=== PATIENT | female | born 1980 | race Caucasian/White ===

== ENCOUNTER 2017-11-16 21:50 | Inpatient (IN) | payer OTHER ==
[~2017-11-16 21:50] MED LIST: ACYC800 PO; AMOX500 PO; CEPH500 PO; IBUP800 PO; OXYACE5T PO; RXOXYACE PO; VALA500 PO; Valium5 MG PO
[2017-11-16] MEDS ORDERED: NIFE60ER PO (22:58)
[2017-11-16] MEDS ORDERED: Verotin-Gr Cap1 EACH (22:58)
[2017-11-16] MEDS ORDERED: PANT40 PO (23:00)
[2017-11-16] MEDS ORDERED: LABE100 PO (23:00)
[2017-11-16 23:26] LABS: BASOPHILS ABSOLUTE AUTO 0.02 K/mm3 (0.00-0.23); BASOPHILS PERCENT AUTO 0 % (0-2); EOSINOPHILS ABSOLUTE AUTO 0.03 K/mm3 (0.00-0.68); EOSINOPHILS PERCENT AUTO 0 % (0-6); Hematocrit 35.2 % (33.0-51.0); Hemoglobin 11.7 g/dL (11.5-16.0); IMMATURE GRAN ABSOLUTE AUTO 0.04 K/mm3 (0.00-0.10); IMMATURE GRAN PERCENT AUTO 0 % (0-1); LYMPHOCYTES ABSOLUTE AUTO 2.35 K/mm3 (0.84-5.20); LYMPHOCYTES PERCENT AUTO 22 % (21-46); MONOCYTES ABSOLUTE AUTO 0.72 K/mm3 (0.16-1.47); MONOCYTES PERCENT AUTO 7 % (4-13); Mean Corpuscular HGB 29.5 pg (26.0-34.0); Mean Corpuscular HGB Conc 33.2 g/dL (31.5-36.5); Mean Corpuscular Volume 89 fL (80-100); NEUTROPHILS ABSOLUTE AUTO 7.74 K/mm3 (1.96-9.15); NEUTROPHILS PERCENT AUTO 71 % (41-73); Platelet Count 274 K/mm3 (150-400); RDW Coefficient Variation 13.7 % (11.7-14.2); RDW Standard Deviation 44.6 fL (35.1-46.3); Red Blood Cell Count 3.97 M/mm3 (3.80-5.20)
[2017-11-16 23:48] LABS: Alanine Aminotransfer (ALT/SGP 16 U/L (12-78); Albumin, Blood 2.4 g/dL (3.4-5.0); Albumin/Globulin Ratio 0.6 (0.8-1.8); Alk Phos 81 U/L (50-136); Anion Gap 9 mmol/L (6-16); Aspartate Aminotrans (AST/SGOT 21 U/L (12-37); Bilirubin, Total 0.2 mg/dL (0.1-1.0); Blood Urea Nitrogen 10 mg/dL (8-24); Bun/Creatinine Ratio 23.3 (12.0-20.0); CO2, Blood 22 mmol/L (21-32); Calcium, Blood 8.1 mg/dL (8.5-10.1); Chloride, Blood 109 mmol/L (98-108); Creatinine, Blood 0.43 mg/dL (0.40-1.00); Glomerular Filtration Rate >60 (60-); Glucose, Blood 96 mg/dL (70-99); Potassium, Blood 3.9 mmol/L (3.5-5.5); Sodium, Blood 140 mmol/L (136-145); Total Protein, Blood 6.4 g/dL (6.4-8.2)
[2017-11-18 01:09] LABS: Protein, Urine Quantitative 11.3 mg/dL (0.0-11.9)
[2017-11-20 09:50] LABS: Protein, Urine Random 37.3 mg/dL (0.0-11.9); Protein/Creat Ratio, Ur Random 0.3
[2017-11-20 10:42] LABS: BASOPHILS ABSOLUTE AUTO 0.03 K/mm3 (0.00-0.23); BASOPHILS PERCENT AUTO 0 % (0-2); EOSINOPHILS ABSOLUTE AUTO 0.05 K/mm3 (0.00-0.68); EOSINOPHILS PERCENT AUTO 0 % (0-6); Hematocrit 34.4 % (33.0-51.0); Hemoglobin 11.2 g/dL (11.5-16.0); IMMATURE GRAN PERCENT AUTO 1 % (0-1); LYMPHOCYTES ABSOLUTE AUTO 2.17 K/mm3 (0.84-5.20); LYMPHOCYTES PERCENT AUTO 19 % (21-46); MONOCYTES ABSOLUTE AUTO 0.92 K/mm3 (0.16-1.47); MONOCYTES PERCENT AUTO 8 % (4-13); Mean Corpuscular HGB 28.9 pg (26.0-34.0); Mean Corpuscular HGB Conc 32.6 g/dL (31.5-36.5); Mean Corpuscular Volume 89 fL (80-100); Mean Platelet Volume 9.6 fL (9.1-12.4); NEUTROPHILS ABSOLUTE AUTO 8.27 K/mm3 (1.96-9.15); NEUTROPHILS PERCENT AUTO 72 % (41-73); Platelet Count 260 K/mm3 (150-400); RDW Coefficient Variation 13.9 % (11.7-14.2); Red Blood Cell Count 3.87 M/mm3 (3.80-5.20); White Blood Cell Count 11.54 K/mm3 (4.00-11.30)
[2017-11-20 11:00] LABS: Alanine Aminotransfer (ALT/SGP 11 U/L (12-78); Albumin, Blood 2.4 g/dL (3.4-5.0); Albumin/Globulin Ratio 0.6 (0.8-1.8); Alk Phos 77 U/L (50-136); Anion Gap 8 mmol/L (6-16); Aspartate Aminotrans (AST/SGOT 13 U/L (12-37); Bilirubin, Total 0.2 mg/dL (0.1-1.0); Blood Urea Nitrogen 10 mg/dL (8-24); Bun/Creatinine Ratio 21.1 (12.0-20.0); CO2, Blood 24 mmol/L (21-32); Calcium, Blood 8.6 mg/dL (8.5-10.1); Chloride, Blood 105 mmol/L (98-108); Creatinine, Blood 0.47 mg/dL (0.40-1.00); Glomerular Filtration Rate >60 (60-); Glucose, Blood 84 mg/dL (70-99); Potassium, Blood 4.1 mmol/L (3.5-5.5); Sodium, Blood 137 mmol/L (136-145); Total Protein, Blood 6.4 g/dL (6.4-8.2)
== END 2017-11-20 13:00 | disposition home or self-care (01) | DRG 781 ==
LOC: OBS 21:50 → BC 22:55
PROVIDERS: Obstetrics & Gynecology
DX: O10.913 Unspecified pre-existing hypertension complicating pregnancy, third trimester (principal); O36.5930 Maternal care for other known or suspected poor fetal growth, third trimester, not applicable or unspecified; Z3A.30 30 weeks gestation of pregnancy; Z88.6 Allergy status to analgesic agent; Z88.2 Allergy status to sulfonamides; Z79.899 Other long term (current) drug therapy
CPT/HCPCS: 36415; 59025; 76815; 76819; 80053; 82570; 84156; 85025; 96372; 99213; J0702; J3475; J7120; Q0163

== ENCOUNTER 2018-01-02 17:12 | Emergency (ER) | payer OTHER ==
[~2018-01-02] VITALS: Ht 160 cm; Wt 111.1 kg
[~2018-01-02 17:12] MED LIST changes: +LABE100 PO; +NIFE60ER PO; +PANT40 PO; +Verotin-Gr Cap1 EACH
[2018-01-02 20:33] LABS: BASOPHILS ABSOLUTE AUTO 0.02 K/mm3 (0.00-0.23); BASOPHILS PERCENT AUTO 0 % (0-2); EOSINOPHILS ABSOLUTE AUTO 0.02 K/mm3 (0.00-0.68); EOSINOPHILS PERCENT AUTO 0 % (0-6); Hematocrit 33.9 % (33.0-51.0); Hemoglobin 10.5 g/dL (11.5-16.0); IMMATURE GRAN ABSOLUTE AUTO 0.03 K/mm3 (0.00-0.10); IMMATURE GRAN PERCENT AUTO 0 % (0-1); LYMPHOCYTES ABSOLUTE AUTO 1.94 K/mm3 (0.84-5.20); LYMPHOCYTES PERCENT AUTO 18 % (21-46); MONOCYTES ABSOLUTE AUTO 0.58 K/mm3 (0.16-1.47); MONOCYTES PERCENT AUTO 5 % (4-13); Mean Corpuscular HGB 27.1 pg (26.0-34.0); Mean Corpuscular Volume 87 fL (80-100); Mean Platelet Volume 9.3 fL (9.1-12.4); NEUTROPHILS ABSOLUTE AUTO 8.32 K/mm3 (1.96-9.15); NEUTROPHILS PERCENT AUTO 76 % (41-73); Platelet Count 278 K/mm3 (150-400); RDW Coefficient Variation 13.9 % (11.7-14.2); Red Blood Cell Count 3.88 M/mm3 (3.80-5.20); White Blood Cell Count 10.91 K/mm3 (4.00-11.30)
[2018-01-02 20:54] LABS: Alanine Aminotransfer (ALT/SGP 149 U/L (12-78); Albumin, Blood 3.3 g/dL (3.4-5.0); Albumin/Globulin Ratio 0.8 (0.8-1.8); Alk Phos 253 U/L (50-136); Anion Gap 10 mmol/L (6-16); Aspartate Aminotrans (AST/SGOT 369 U/L (12-37); Bilirubin, Total 0.7 mg/dL (0.1-1.0); Blood Urea Nitrogen 9 mg/dL (8-24); Bun/Creatinine Ratio 13.5 (12.0-20.0); CO2, Blood 25 mmol/L (21-32); Calcium, Blood 8.5 mg/dL (8.5-10.1); Chloride, Blood 105 mmol/L (98-108); Creatinine, Blood 0.67 mg/dL (0.40-1.00); Glomerular Filtration Rate >60 (60-); Glucose, Blood 120 mg/dL (70-99); Potassium, Blood 3.5 mmol/L (3.5-5.5); Sodium, Blood 140 mmol/L (136-145); Total Protein, Blood 7.3 g/dL (6.4-8.2); Troponin I <0.015 ng/mL (0.000-0.040)
[2018-01-02] MEDS ORDERED: Zofran8 MG PO (23:34)
== END 2018-01-02 23:45 | disposition home or self-care (01) ==
LOC: ER 17:12
PROVIDERS: Emergency Medicine
DX: O16.5 Unspecified maternal hypertension, complicating the puerperium (principal); O99.89 Other specified diseases and conditions complicating pregnancy, childbirth and the puerperium; R10.30 Lower abdominal pain, unspecified; Z88.2 Allergy status to sulfonamides; Z88.6 Allergy status to analgesic agent; Z79.899 Other long term (current) drug therapy
CPT/HCPCS: 36415; 71046; 76705; 80053; 83690; 84484; 85025; 99284

== ENCOUNTER 2018-09-16 20:45 | Observation (INO) | payer OTHER ==
[~2018-09-16] VITALS: Ht 160 cm; Wt 136.1 kg
[~2018-09-16 20:45] MED LIST changes: +Zofran8 MG PO
[2018-09-16 21:46] LABS: BASOPHILS ABSOLUTE AUTO 0.03 K/mm3 (0.00-0.23); BASOPHILS PERCENT AUTO 0 % (0-2); EOSINOPHILS ABSOLUTE AUTO 0.03 K/mm3 (0.00-0.68); EOSINOPHILS PERCENT AUTO 0 % (0-6); Hematocrit 40.4 % (33.0-51.0); Hemoglobin 12.7 g/dL (11.5-16.0); IMMATURE GRAN ABSOLUTE AUTO 0.03 K/mm3 (0.00-0.10); IMMATURE GRAN PERCENT AUTO 0 % (0-1); LYMPHOCYTES ABSOLUTE AUTO 2.45 K/mm3 (0.84-5.20); LYMPHOCYTES PERCENT AUTO 23 % (21-46); MONOCYTES ABSOLUTE AUTO 0.71 K/mm3 (0.16-1.47); MONOCYTES PERCENT AUTO 7 % (4-13); Mean Corpuscular HGB 26.9 pg (26.0-34.0); Mean Corpuscular HGB Conc 31.4 g/dL (31.5-36.5); Mean Corpuscular Volume 86 fL (80-100); Mean Platelet Volume 9.7 fL (9.1-12.4); NEUTROPHILS ABSOLUTE AUTO 7.38 K/mm3 (1.96-9.15); NEUTROPHILS PERCENT AUTO 69 % (41-73); Platelet Count 292 K/mm3 (150-400); RDW Coefficient Variation 14.1 % (11.7-14.2); RDW Standard Deviation 43.9 fL (35.1-46.3); Red Blood Cell Count 4.72 M/mm3 (3.80-5.20); White Blood Cell Count 10.63 K/mm3 (4.00-11.30)
[2018-09-16 22:05] LABS: Alanine Aminotransfer (ALT/SGP 175 U/L (12-78); Albumin, Blood 3.8 g/dL (3.4-5.0); Albumin/Globulin Ratio 0.9 (0.8-1.8); Alk Phos 237 U/L (50-136); Anion Gap 9 mmol/L (6-16); Aspartate Aminotrans (AST/SGOT 210 U/L (12-37); Bilirubin, Total 1.1 mg/dL (0.1-1.0); Blood Urea Nitrogen 10 mg/dL (8-24); Bun/Creatinine Ratio 17.7 (12.0-20.0); CO2, Blood 26 mmol/L (21-32); Calcium, Blood 8.7 mg/dL (8.5-10.1); Chloride, Blood 104 mmol/L (98-108); Creatinine, Blood 0.56 mg/dL (0.40-1.00); Globulin, Blood 4.1 g/dL (2.2-4.0); Glomerular Filtration Rate >60 (60-); Glucose, Blood 127 mg/dL (70-99); Potassium, Blood 4.3 mmol/L (3.5-5.5); Sodium, Blood 139 mmol/L (136-145); Total Protein, Blood 7.9 g/dL (6.4-8.2)
[2018-09-16 22:21] LABS: Source, Urine Clean Catch
[2018-09-16 22:23] LABS: Blood, Urine 5+ (Neg); Glucose Qualitative, Urine Neg (Neg); Ketones, Urine 4+ (Neg); Leukocyte Esterase, Urine 2+ (Neg); Nitrite, Urine Neg (Neg); Protein, Urine 2+ (Neg); Urobilinogen, Urine 1+ (Normal)
[2018-09-16 22:32] LABS: Appearance, Urine Cloudy (Clear); Bacteria Few /hpf; Bilirubin, Urine 1+ (Neg); Color, Urine Red (P-Yellow); Red Blood Cells, Urine TNTC /hpf (0-2); Squamous Epithelial Cells Few /hpf (Few)
--- NOTE | 2018-09-17 07:29 | NUR ---
SHIFT SUMMARY PT A&O X4 T/O SHIFT. ADMIT FROM ER; PT INDEPENDENT IN ROOM. RA; DENIES SOB, NAUSEA AND CP. PAIN IN RUQ RADIATING TO BACK. K-PAD TO BACK FOR COMFORT. FLUID BOLUS PER ORDERS. PT NPO; ICEY WATER WITH ORAL SPONGE AT BEDSIDE. PT DAUGHTER AND FRIEND IN ROOM; PT LACTATING. CALL LIGHT IN REACH. REPORT GIVEN TO DAY SHIFT RN.
--- NOTE | 2018-09-17 08:00 | NUR ---
ASSESSMENT CHARTED. PT FRIEND AT BEDSIDE ROCKING PT (IN [place]). NADN. IVF INFUSING TO 18G TO RIGHT FA. 20G TO L AC AT THIS TIME. PT DENIES PAIN, DENIES NAUSEA. PT ASKING ABOUT SURGICAL PROCEDURE TODAY. THIS RN WILL CHECK SCHED.
--- NOTE | 2018-09-17 08:55 | NUR ---
IV TO RIGHT AC REMOVED PER PT REQUEST. BREAST PUMP PROVIDED. PADS AND WIPED PROVIDED TO PT. PT DENIES PAIN/NAUSEA AT THIS TIME.
--- NOTE | 2018-09-17 10:23 | NUR ---
PT NURSING INFANT. IV INT AND DRESSED FOR SHOWER.
--- NOTE | 2018-09-17 11:14 | NUR ---
dr caldwell to room for eval and to consent pt to procedure.
--- NOTE | 2018-09-17 12:02 | NUR ---
pt denies pain/nausea. infant sleeping. door closed for noise control.
--- NOTE | 2018-09-17 12:16 | NUR ---
PT MEDICATED FOR C/O PAIN 09/23. ZOFRAN ALSO GIVEN. PT RESTING, PT INFANT SLEEPING. NAKUL.
--- NOTE | 2018-09-17 13:30 | NUR ---
PT TO PACU VIA [facility]. PT SON WATCHING PT DAUGHTER.
--- NOTE | 2018-09-17 16:14 | NUR ---
PT STATES SHE IS HAVING A HARD TIME OPENING HER LEFT EYE. APPEARS WNL
--- NOTE | 2018-09-17 16:25 | NUR ---
REPORT FROM LAMINATION ASSEMBLER.
--- NOTE | 2018-09-17 16:43 | NUR ---
PT RETURNED TO ROOM FROM PACU. ALERT AND ORIENTED. ABLE TO ANSWER QUESTIONS. MANY FAMILY MEMBERS AT BEDSIDE. PT MOVED TO BED FROM PACU [facility]. PT WITH 3 LAP SITES, UMBILICAL SITE WITH SCANT BLEEDING. PT DENIES NAUSEA. PAIN 4/10. DENIES FENTANYL.
--- NOTE | 2018-09-17 16:55 | NUR ---
VSS. PT CALL LIGHT IN REACH. WATER AND CLEARS PROVIDED.
--- NOTE | 2018-09-17 17:00 | NUR ---
DR LONG UPDATED ON PT POST/OP. VSS. PLAN TO DC TONIGHT IF PT STABLE AND IF PT WANTING TO. OTHERWISE OBSERVE OVERNIGHT FOR DC IN AM. PT AND FAMILY AWARE.
--- NOTE | 2018-09-17 17:30 | NUR ---
PT EATING DINNER. RAJINDER PO WELL. DENIES NAUSEA. PT FAMILY AT BEDSIDE.
--- NOTE | 2018-09-17 18:10 | NUR ---
PT UP TO RR WITH MINIMAL ASSISTANCE. HOSP PANTIES AND PADS PROVIDED. STERI STRIP TO UMBILICAL AREA REINFORCED.
--- NOTE | 2018-09-17 18:42 | NUR ---
PT MEDICATED WITH ZOFRAN AND NORCO X2. RAJINDER WELL. LYING IN BED AND BREAST FEEDING. FAMILY AT BEDSIDE.
--- NOTE | 2018-09-18 03:08 | NUR ---
PT CALLED STATING POSSIBLY BLEEDING FROM RECTUM. PT HAD LARGE BM AND THERES NOTICABLE BLOOD ON STOOL IN TOILET. PT IS ON MENSES BUT DOESNT THINK ITS VAGINAL BLOOD. NO INCREASE PAIN, VSS. WILL MONITOR.
--- NOTE | 2018-09-18 04:03 | NUR ---
POD 1 S/P LAP RYAN. PAIN HAS BEEN PRETTY MINIMAL AND DENIES ANY N/V. ABD WITH SS INTACT, NO DRAINAGE. PT DOES STATE THAT THINKS SHES BLEEDING FROM RECTUM. PT IS ON MENSES AND WEARING PAD BUT STATES WHEN WIPES SHE SEE'S BLOOD. VSS REMAIN STABLE, NO INCREASED PAIN. WILL PASS THIS ALONG IN REPORT. CALL LIGHT IN REACH. PROBABLE DC HOME TODAYS. SPOUSE AND BABY IN ROOM.
--- NOTE | 2018-09-18 07:00 | NUR ---
REPORT FROM KIET CASEY. ASSUMED PT CARE.
--- NOTE | 2018-09-18 08:00 | NUR ---
ASSESSMENT CHARTED. VSS. PT PROVIDED BREAKFAST TRAY. PT SPOUSE SLEEPING ON COT. PT ON PILLOW IN BED WITH PT. PT DENIES NAUSES. STATES SOME ABD PAIN, WOULD LIKE SOME PAIN MEDS. PLAN TO DC TODAY.
--- NOTE | 2018-09-18 08:58 | NUR ---
PT ATE MOST OF BREAKFAST. ROOM TIDIED. PT MEDICATED WITH 2 NORCO PER EMAR.
--- NOTE | 2018-09-18 09:35 | NUR ---
DR LONG TO [place]. OK TO PR.
--- NOTE | 2018-09-18 09:55 | NUR ---
IV TO RIGHT FA REMOVED. TIP INTACT. DRESSED WITH COBAN AND GAUZE. PT UP TO SHOWER INDEPENDENTLY. PENDING DC.
--- NOTE | 2018-09-18 10:52 | NUR ---
DC REVIEWED WITH PT. RELAVENT INSTRUCTIONS PROVIDED. RX PROVIDED. PT TO FU WITH SURGEON IN 2 WEEKS. AWAITING PT TO LEGAL FINANCIAL SPECIALIST. SITTING IN ROCKING CHAIR NURSING.
--- NOTE | 2018-09-18 13:00 | NUR ---
PT ESCORTED TO LOBBY WITH STAFF.
== END 2018-09-18 13:07 | disposition home or self-care (01) ==
LOC: ER 20:45 → SURS 20:46
PROVIDERS: Emergency Medicine; Surgery; ADMIT Surgery
PROC: BF13YZZ Fluoroscopy of Gallbladder and Bile Ducts using Other Contrast (ICD-10-PCS; 2018-09-17)
PROC: 0FT44ZZ Resection of Gallbladder, Percutaneous Endoscopic Approach (ICD-10-PCS; principal; 2018-09-17 14:30)
DX: K80.00 Calculus of gallbladder with acute cholecystitis without obstruction (principal); E66.9 Obesity, unspecified; Z88.6 Allergy status to analgesic agent; Z88.2 Allergy status to sulfonamides; Z68.43 Body mass index [BMI] 50.0-59.9, adult
CPT/HCPCS: 36415; 74300; 76705; 80053; 81001; 81025; 83690; 85025; 87086; 88304; 96374; 96375; 96376; 99285-25; C1729; J0690; J1100; J1885; J2250; J2405; J3010; J7030; J7120

== ENCOUNTER → 2020-05-25 | Outpatient (CLI) | payer OTHER ==
[2020-05-25 17:13] LABS: BASOPHILS ABSOLUTE AUTO 0.02 K/mm3 (0.00-0.23); BASOPHILS PERCENT AUTO 0 % (0-2); EOSINOPHILS ABSOLUTE AUTO 0.07 K/mm3 (0.00-0.68); EOSINOPHILS PERCENT AUTO 1 % (0-6); Hematocrit 40.8 % (33.0-51.0); Hemoglobin 12.7 g/dL (11.5-16.0); IMMATURE GRAN ABSOLUTE AUTO 0.01 K/mm3 (0.00-0.10); IMMATURE GRAN PERCENT AUTO 0 % (0-1); LYMPHOCYTES ABSOLUTE AUTO 2.01 K/mm3 (0.84-5.20); LYMPHOCYTES PERCENT AUTO 34 % (21-46); MONOCYTES ABSOLUTE AUTO 0.39 K/mm3 (0.16-1.47); MONOCYTES PERCENT AUTO 7 % (4-13); Mean Corpuscular HGB 27.7 pg (26.0-34.0); Mean Corpuscular HGB Conc 31.1 g/dL (31.5-36.5); Mean Corpuscular Volume 89 fL (80-100); Mean Platelet Volume 10.3 fL (9.1-12.4); NEUTROPHILS ABSOLUTE AUTO 3.43 K/mm3 (1.96-9.15); NEUTROPHILS PERCENT AUTO 58 % (41-73); Platelet Count 251 K/mm3 (150-400); RDW Coefficient Variation 13.9 % (11.7-14.2); RDW Standard Deviation 45.1 fL (35.1-46.3); Red Blood Cell Count 4.58 M/mm3 (3.80-5.20); White Blood Cell Count 5.93 K/mm3 (4.00-11.30)
[2020-05-25 17:23] LABS: Appearance, Urine Turbid (Clear); Bilirubin, Urine Neg (Neg); Blood, Urine 1+ (Neg); Color, Urine Yellow (P-Yellow); Glucose Qualitative, Urine Neg (Neg); Ketones, Urine Neg (Neg); Leukocyte Esterase, Urine Neg (Neg); Nitrite, Urine Neg (Neg); Protein, Urine Neg (Neg); Specific Gravity, Urine 1.025 (1.003-1.022); Urobilinogen, Urine NORM (Normal)
[2020-05-25 17:43] LABS: Amorphous Heavy (0-Heavy); Bacteria Rare /hpf; Red Blood Cells, Urine 0-2 /hpf (0-2); Squamous Epithelial Cells Few /hpf (Few); White Blood Cells, Urine 0-2 /hpf (0-5)
[2020-05-25 17:46] LABS: Alanine Aminotransfer (ALT/SGP 22 U/L (12-78); Albumin, Blood 3.5 g/dL (3.4-5.0); Alk Phos 81 U/L (50-136); Anion Gap 2 mmol/L (6-16); Aspartate Aminotrans (AST/SGOT 21 U/L (12-37); Bilirubin, Total 0.5 mg/dL (0.1-1.0); Blood Urea Nitrogen 12 mg/dL (8-24); Bun/Creatinine Ratio 19.4 (12.0-20.0); CO2, Blood 28 mmol/L (21-32); Calcium, Blood 8.4 mg/dL (8.5-10.1); Chloride, Blood 112 mmol/L (98-108); Cholesterol 175 mg/dL (50-200); Creatinine, Blood 0.62 mg/dL (0.40-1.00); Free Thyroxine 1.01 ng/dL (0.70-1.60); Globulin, Blood 3.5 g/dL (2.2-4.0); Glomerular Filtration Rate >60 (60-); Glucose, Blood 102 mg/dL (70-99); HDL Cholesterol 44 mg/dL (>39); LDL/HDL RATIO 2.7; Low Density Lipoprotein Chol 119 mg/dL (0-110); Potassium, Blood 4.2 mmol/L (3.5-5.5); Sodium, Blood 142 mmol/L (136-145); Triglycerides 58 mg/dL (30-160); Very Low Density Lipoprot Chol 11 mg/dL (6-32)
== END | disposition home or self-care (01) ==
LOC: LAB 16:07 → LAB SHORT 16:07
PROVIDERS: Nurse Practitioner Family
DX: Z13.220 Encounter for screening for lipoid disorders (principal); I10 Essential (primary) hypertension; F41.9 Anxiety disorder, unspecified; R31.9 Hematuria, unspecified; Z86.2 Personal history of diseases of the blood and blood-forming organs and certain disorders involving the immune mechanism
CPT/HCPCS: 80053; 80061; 81001; 84439; 84443; 85025

== ENCOUNTER → 2020-06-09 | Outpatient (CLI) | payer OTHER ==
[2020-06-09 17:41] LABS: International Normalized Ratio 0.98; Prothrombin Time Results 10.5 Sec (9.7-11.5)
[2020-06-09 20:13] LABS: Alanine Aminotransfer (ALT/SGP 14 U/L (12-78); Albumin, Blood 3.5 g/dL (3.4-5.0); Alk Phos 77 U/L (50-136); Anion Gap 3 mmol/L (6-16); Aspartate Aminotrans (AST/SGOT 7 U/L (12-37); Bilirubin, Total 0.4 mg/dL (0.1-1.0); Blood Urea Nitrogen 13 mg/dL (8-24); Bun/Creatinine Ratio 16.7 (12.0-20.0); CO2, Blood 30 mmol/L (21-32); Calcium, Blood 9.2 mg/dL (8.5-10.1); Chloride, Blood 106 mmol/L (98-108); Creatinine, Blood 0.78 mg/dL (0.40-1.00); Globulin, Blood 3.4 g/dL (2.2-4.0); Glomerular Filtration Rate >60 (60-); Glucose, Blood 99 mg/dL (70-99); Potassium, Blood 4.6 mmol/L (3.5-5.5); Sodium, Blood 139 mmol/L (136-145); Total Protein, Blood 6.9 g/dL (6.4-8.2)
== END ==
LOC: LAB 16:00 → LAB SHORT 16:00
PROVIDERS: Nurse Practitioner Family
DX: Q65.89 Other specified congenital deformities of hip (principal)
CPT/HCPCS: 80053; 83036; 84100; 85610; 87086

== ENCOUNTER → 2020-07-28 | Outpatient (CLI) | payer OTHER ==
[2020-07-30 15:09] LABS: HPV 16 Negative (Negative); HPV 18 Negative (Negative); HPV OTHER HR TYPES Negative (Negative)
== END | disposition home or self-care (01) ==
LOC: LAB 14:59 → LAB SHORT 14:59
PROVIDERS: Obstetrics & Gynecology
DX: Z12.4 Encounter for screening for malignant neoplasm of cervix (principal)
CPT/HCPCS: 87624; G0123

== ENCOUNTER → 2021-03-25 | Outpatient (CLI) | payer OTHER ==
[2021-03-28 04:11] LABS: CHLAMYDIA TRACHOMATIS, NAA Negative (Negative)
== END | disposition home or self-care (01) ==
LOC: LAB SHORT 13:19 → LAB 13:19 → LAB SHORT 03-26 13:19
PROVIDERS: Obstetrics & Gynecology
DX: Z11.3 Encounter for screening for infections with a predominantly sexual mode of transmission (principal)
CPT/HCPCS: 87070; 87205; 87491; 87591

== ENCOUNTER → 2021-07-08 | Outpatient (CLI) | payer OTHER ==
[2021-07-08 17:24] LABS: BASOPHILS ABSOLUTE AUTO 0.03 K/mm3 (0.00-0.23); BASOPHILS PERCENT AUTO 1 % (0-2); EOSINOPHILS ABSOLUTE AUTO 0.04 K/mm3 (0.00-0.68); EOSINOPHILS PERCENT AUTO 1 % (0-6); Hematocrit 43.3 % (33.0-51.0); IMMATURE GRAN ABSOLUTE AUTO 0.01 K/mm3 (0.00-0.10); IMMATURE GRAN PERCENT AUTO 0 % (0-1); LYMPHOCYTES ABSOLUTE AUTO 2.72 K/mm3 (0.84-5.20); LYMPHOCYTES PERCENT AUTO 42 % (21-46); MONOCYTES ABSOLUTE AUTO 0.45 K/mm3 (0.16-1.47); MONOCYTES PERCENT AUTO 7 % (4-13); Mean Corpuscular HGB 29.1 pg (26.0-34.0); Mean Corpuscular HGB Conc 32.3 g/dL (31.5-36.5); Mean Corpuscular Volume 90 fL (80-100); Mean Platelet Volume 9.3 fL (9.1-12.4); NEUTROPHILS ABSOLUTE AUTO 3.18 K/mm3 (1.96-9.15); NEUTROPHILS PERCENT AUTO 49 % (41-73); Platelet Count 297 K/mm3 (150-400); RDW Coefficient Variation 12.8 % (11.7-14.2); RDW Standard Deviation 42.5 fL (35.1-46.3); Red Blood Cell Count 4.81 M/mm3 (3.80-5.20); White Blood Cell Count 6.43 K/mm3 (4.00-11.30)
[2021-07-08 17:37] LABS: CHOL/HDL RATIO 3.7; Cholesterol 193 mg/dL (50-200); HDL Cholesterol 52 mg/dL (>39); LDL/HDL RATIO 2.4; Low Density Lipoprotein Chol 127 mg/dL (0-110); Triglycerides 70 mg/dL (30-160); Very Low Density Lipoprot Chol 14 mg/dL (6-32)
[2021-07-08 17:39] LABS: Thyroid Stimulating Hormone 0.821 uIU/mL (0.360-4.800)
[2021-07-08 17:43] LABS: Alanine Aminotransfer (ALT/SGP 17 U/L (12-78); Albumin, Blood 3.6 g/dL (3.4-5.0); Albumin/Globulin Ratio 0.9 (0.8-1.8); Alk Phos 64 U/L (50-136); Anion Gap 6 mmol/L (6-16); Aspartate Aminotrans (AST/SGOT 12 U/L (12-37); Bilirubin, Total 0.6 mg/dL (0.1-1.0); Blood Urea Nitrogen 14 mg/dL (8-24); CO2, Blood 28 mmol/L (21-32); Chloride, Blood 105 mmol/L (98-108); Creatinine, Blood 0.61 mg/dL (0.40-1.00); Globulin, Blood 3.8 g/dL (2.2-4.0); Glomerular Filtration Rate >60 (60-); Glucose, Blood 105 mg/dL (70-99); Potassium, Blood 3.9 mmol/L (3.5-5.5); Sodium, Blood 139 mmol/L (136-145); Total Protein, Blood 7.4 g/dL (6.4-8.2)
== END | disposition home or self-care (01) ==
LOC: LAB SHORT 16:02
PROVIDERS: Nurse Practitioner Family
DX: I10 Essential (primary) hypertension (principal); E66.9 Obesity, unspecified
CPT/HCPCS: 80053; 80061; 83036; 84443; 85025

== ENCOUNTER 2023-07-04 10:56 | Day surgery (SDC) | payer OTHER ==
[~2023-07-04] VITALS: Ht 160 cm; Wt 90.0 kg
[2023-07-04] VITALS (22 sets, daily range): BP systolic 81–129; BP diastolic 45–86
[~2023-07-04 10:56] MED LIST changes: +AMOCLA875 PO; +ATEN25 PO; +ATEN50 PO; +CHLO25B PO; +Enalapril Malea20 MG PO; +MAGNESIUM OXID500 MG PO
--- NOTE | 2023-07-04 13:58 | NUR ---
Patient up to Ambulate independently. Gait steady. Surgical site prepped with 2% Chlorhexidine cloth wipe. History, Chart, Medications and Allergies reviewed before start of procedure. Lungs clear T/O to Auscultation. Patient confirms NPO status and agrees with scheduled surgery. Pre-Op teaching done. Pt verbalizes understanding.
--- NOTE | 2023-07-04 16:10 | NUR ---
07/04/23 1610 Randa Candelaria SPINAL NERVE BLOCK COMPLETED BY DR LUCAS UPON ENTRY TO OR. PT TOLERATED WELL.
[2023-07-05] VITALS (11 sets, daily range): BP systolic 86–122; BP diastolic 49–70
[2023-07-05 05:22] LABS: BASOPHILS ABSOLUTE AUTO 0.01 K/mm3 (0.00-0.23); BASOPHILS PERCENT AUTO 0 % (0-2); EOSINOPHILS PERCENT AUTO 0 % (0-6); Hematocrit 28.2 % (33.0-51.0); Hemoglobin 9.4 g/dL (11.5-16.0); IMMATURE GRAN ABSOLUTE AUTO 0.03 K/mm3 (0.00-0.10); IMMATURE GRAN PERCENT AUTO 0 % (0-1); LYMPHOCYTES ABSOLUTE AUTO 0.93 K/mm3 (0.84-5.20); LYMPHOCYTES PERCENT AUTO 10 % (21-46); MONOCYTES ABSOLUTE AUTO 0.63 K/mm3 (0.16-1.47); MONOCYTES PERCENT AUTO 7 % (4-13); Mean Corpuscular HGB Conc 33.3 g/dL (31.5-36.5); Mean Corpuscular Volume 90 fL (80-100); Mean Platelet Volume 9.6 fL (9.1-12.4); NEUTROPHILS ABSOLUTE AUTO 8.12 K/mm3 (1.96-9.15); NEUTROPHILS PERCENT AUTO 84 % (41-73); Platelet Count 190 K/mm3 (150-400); RDW Coefficient Variation 12.9 % (11.7-14.2); RDW Standard Deviation 42.5 fL (35.1-46.3); Red Blood Cell Count 3.13 M/mm3 (3.80-5.20); White Blood Cell Count 9.72 K/mm3 (4.00-11.30)
--- NOTE | 2023-07-05 05:41 | NUR ---
SHIFT SUMMARY S/P R ZAC. AQUACEL DRESSING CDI WITH POLAR PACK IN PLACE. SPINAL ANESTHESIA LINGERED T/O SHIFT. PT RECENTLY REPORTS FULL SENSATION. UP WITH 1-2 ASSIST TO BSC WITH FWW + GB. 50% WEIGHT BEARING. PT DID FAIR, BUT REPORTED LIGHTHEADEDNESS. HAS BEEN HYPOTENSIVE MOST OF SHIFT AND RECEIVED X1 FLUID BOLUS WITH NO IMPROVEMENT. HOSPITALIST CONSULT PLACED AND NOTIFIED. DR. ROGERS VERBALIZED HE WOULD COME SEE THE PT SHORTLY. PT VOIDING SPONTANEOUSLY. 1 ROXICODONE/TYLENOL FOR PAIN MANAGEMENT. USES CALL LIGHT APPROPRIATELY.
[2023-07-05 05:46] LABS: Bun/Creatinine Ratio 11.2 (12.0-20.0); Calcium, Blood 7.4 mg/dL (8.5-10.1); Creatinine, Blood 0.53 mg/dL (0.40-1.00); Potassium, Blood 3.5 mmol/L (3.5-5.5)
--- NOTE | 2023-07-05 10:30 | NUR ---
PT REMAINS HYPOTENSIVE AND SYMPTOMATIC WHEN SHE STANDS [place] [facility] ABLE TO TRANSFER WELL TO CHAIR. SPOKE WITH THERAPY. WILL HOLD OFF AT THIS TIME AND REASSESS AFTER LUNCH. PT IS AGREEABLE AND DOING EXERCISES IN BED.
--- NOTE | 2023-07-05 11:25 | NUR ---
Pt. is sitting up in a recliner when she welcomes my visit. Pts. daughter is at bedside. Facilitate a life review. Listen with interest, empathy, and a calming presence. Pt. displays evidence of trust and engagement. Prayed for Pt. and established rapport. Pt. verbalized gratitude for the spiritual care visit, and welcomed this research center partner to return.
--- NOTE | 2023-07-05 16:56 | NUR ---
SHIFT SUMMARY POD 1 RTHA DRESSING REMAINS CDI. PT HAS REMAINED HYPOTENSIVE DURING SHIFT. SYMPTOMS ARE IMPROVING T/O SHIFT. PT HAS HAD AN INCREASE IN PAIN, MEDICATION PER EMAR. PT HAS BEEN STAND AND PIVOT TO BSC AND CHAIR. PT DOING EXERCISES IN THE CHAIR. PLAN IS TO CONTINUE WORKING WITH THERAPY ONCE BLOOD PRESSURE IS STABLE AND PATIENT NO LONGER GETTING LIGHTHEADED WITH AMBULATION.
[2023-07-06 04:28] VITALS: BP 100/56
--- NOTE | 2023-07-06 05:55 | NUR ---
SHIFT SUMMARY ASSUMED CARE OF PT AT 1900. PT IS A/OX4. HEART SOUNDS REGULAR. LUNG SOUNDS CLEAR. PT IS A 1P SBA WITH WALKER TO BSC. PT C/O PAIN, MEDICATED PER EMAR. PT EXPRESSED CONCERNS FOR BP DUE TO DIZZINESS WHEN STANDING. PT BP AVERAGED 90-110 SYSTOLIC.
[2023-07-06 07:37] VITALS: BP 111/65
[2023-07-06 11:49] VITALS: BP 105/59
[2023-07-06] MEDS ORDERED: ASPI81CH PO (15:40)
[2023-07-06] MEDS ORDERED: Percocet 5-3251 EACH PO (15:40)
--- NOTE | 2023-07-06 19:12 | NUR ---
DISCHARGE POD 1 RTHA ALL INSTRUCTIONS GONE OVER WITH PATIENT. EXTRA DRESSINGS SENT WITH PATIENT. NO FURTHER QUESTIONS AT THIS TIME. PT HAS BEEN AMBULATING WELL. NO MORE DIZZINESS OR LIGHTHEADEDNESS. PRESCRIPTIONS PICKED UP PRIOR TO DISCHARGE.
== END 2023-07-06 18:58 | disposition home or self-care (01) ==
LOC: SURS 10:56 → ORSCMMR 10:56 → ORD 12:30 → ORSCMMR 12:30 → ORD 13:45 → SURS 20:00 → ORSCMMR 07-06 18:58
PROVIDERS: Orthopaedic Surgery
PROC: 0SR90JZ Replacement of Right Hip Joint with Synthetic Substitute, Open Approach (ICD-10-PCS; principal; 2023-07-04 15:00)
DX: M16.11 Unilateral primary osteoarthritis, right hip (principal); I10 Essential (primary) hypertension; E66.9 Obesity, unspecified; Z68.35 Body mass index [BMI] 35.0-35.9, adult; Z85.43 Personal history of malignant neoplasm of ovary; Z79.899 Other long term (current) drug therapy
CPT/HCPCS: 36415; 72170; 80048; 84443; 85025; 97110; 97116; 97162; 97530; A9270; C1713; C1776; J0171; J0690; J0735; J1100; J2250; J2405; J2704; J2765; J2795; J7030; J7120

== ENCOUNTER → 2024-02-29 | Outpatient (CLI) | payer OTHER ==
[~2024-02-29] MED LIST changes: +ASPI81CH PO; +Percocet 5-3251 EACH PO
[2024-02-29 19:34] LABS: BASOPHILS ABSOLUTE AUTO 0.03 K/mm3 (0.00-0.23); BASOPHILS PERCENT AUTO 1 % (0-2); EOSINOPHILS ABSOLUTE AUTO 0.03 K/mm3 (0.00-0.68); EOSINOPHILS PERCENT AUTO 1 % (0-6); Hematocrit 38.2 % (33.0-51.0); Hemoglobin 12.7 g/dL (11.5-16.0); IMMATURE GRAN ABSOLUTE AUTO 0.01 K/mm3 (0.00-0.10); IMMATURE GRAN PERCENT AUTO 0 % (0-1); LYMPHOCYTES ABSOLUTE AUTO 2.58 K/mm3 (0.84-5.20); LYMPHOCYTES PERCENT AUTO 45 % (21-46); MONOCYTES PERCENT AUTO 7 % (4-13); Mean Corpuscular HGB 29.9 pg (26.0-34.0); Mean Corpuscular HGB Conc 33.2 g/dL (31.5-36.5); Mean Corpuscular Volume 90 fL (80-100); Mean Platelet Volume 9.7 fL (9.1-12.4); NEUTROPHILS ABSOLUTE AUTO 2.66 K/mm3 (1.96-9.15); NEUTROPHILS PERCENT AUTO 47 % (41-73); Platelet Count 290 K/mm3 (150-400); RDW Coefficient Variation 13.2 % (11.7-14.2); RDW Standard Deviation 43.6 fL (35.1-46.3); Red Blood Cell Count 4.25 M/mm3 (3.80-5.20); White Blood Cell Count 5.71 K/mm3 (4.00-11.30)
[2024-02-29 19:57] LABS: Albumin, Blood 3.2 g/dL (3.4-5.0); Bilirubin, Total 0.3 mg/dL (0.1-1.0); Bun/Creatinine Ratio 16.4 (12.0-20.0); Calcium, Blood 8.5 mg/dL (8.5-10.1); Creatinine, Blood 0.61 mg/dL (0.40-1.00); Globulin, Blood 3.3 g/dL (2.2-4.0); Potassium, Blood 3.7 mmol/L (3.5-5.5); Total Protein, Blood 6.5 g/dL (6.4-8.2)
== END ==
LOC: LAB SHORT 19:27 → LAB 19:27
PROVIDERS: Hospitalist
DX: R10.12 Left upper quadrant pain (principal)
CPT/HCPCS: 80053; 83690; 85025